=== PATIENT | female | born 1935 | race Caucasian/White ===

== ENCOUNTER 2017-10-11 14:54 | Outpatient (CLI) | payer MEDICARE, OTHER ==
--- NOTE | 2017-10-11 16:11 | ULT ---
DOPPLER VENOUS ULTRASOUND OF THE RIGHT LOWER EXTREMITY: 10/11/17 INDICATION: Right lower extremity edema for 1.5 weeks. TECHNIQUE: [place] scale, color doppler and vascular duplex with spectral analysis was performed of the deep venous structures of the right lower extremity. Common femoral vein, superficial femoral vein, popliteal ve in, posterior tibial vein, proximal greater saphenous and profunda veins were assessed. FINDINGS: There is partial occlusive thrombus seen from the right common femoral vein and right profunda femora l vein through the right superficial femoral vein distally. The right popliteal vein and posterior ti bial appear patent. IMPRESSION: Near complete occlusive thrombus seen within the right common femoral vein through the level of the r ight superficial femoral vein and the proximal right profunda vein. The findings were called to Dr. Guillermo at 3:37 p.m. on 10/11/17. Code CR POS: [id number]
== END 2017-10-11 14:55 | disposition home or self-care (01) ==
LOC: SCSULT 14:54
PROVIDERS: ATTEND Internal Medicine Rheumatology
DX: M79.89 Other specified soft tissue disorders (principal); M79.661 Pain in right lower leg; I82.411 Acute embolism and thrombosis of right femoral vein; I82.811 Embolism and thrombosis of superficial veins of right lower extremity

== ENCOUNTER 2022-09-01 12:05 | Inpatient (IN) | payer MEDICARE, MEDICAID ==
[2022-09-01 12:56] LABS: #Lymphocytes 2.6 thou/uL (1.20-3.40); #Monocytes 1.2 thou/uL (0.11-0.59); #Neutrophils 10.6 thou/uL (1.40-6.50); %Basophils 0.3 % (0.0-1.0); %Eosinophils 0.3 % (0.0-10.0); %Lymphocytes 17.8 % (21.0-51.0); %Monocytes 8.4 % (0.0-10.0); %Neutrophils 73.3 % (42.0-75.0); Hemoglobin 13.8 g/dL (12.0-16.0); Mean Corpuscular HGB CONC 30.2 g/dL (32.0-36.0); Mean Corpuscular Hemoglobin 31.2 pg (27.0-31.0); Mean Platelet Volume 9.1 fL (7.4-10.4); Platelet Count 271 10x3/uL (130-400); RBC Distribution Width 12.7 % (11.5-14.5); Red Blood Cell (RBC) Count 4.42 mill/uL (4.20-5.40); White Blood Cell (WBC) Count 14.5 10x3/uL (4.8-10.8)
[2022-09-01 12:59] LABS: Bacteria/HPF 4+ HPF (None Seen); Bilirubin Negative (Negative); Blood, Urine Trace (Negative); Clarity Extra Turbid (Clear); Glucose, Urine (Dipstick) Normal (Negative); Ketone, Urine Negative (Negative); Leukocyte Negative Leu/uL (Negative); Nitrite Negative (Negative); Protein, Urine (Dipstick) 100 mg/dL (Neg-Trace); RBC/HPF None Seen HPF (0-3); Specific Gravity, Urine 1.033 (1.002-1.036)
[2022-09-01 13:10] LABS: ALT (SGPT) 11 U/L (8-55); AST (SGOT) 18 U/L (5-34); Albumin 3.2 g/dL (3.4-4.8); Alkaline Phosphatase 54 U/L (40-110); Anion Gap 13 mmol/L (10-20); BUN (Urea Nitrogen) 31 mg/dL (9.8-20.1); Bilirubin, Total 0.6 mg/dL (0.2-1.2); Calc. Creatinine Clearance 0 mL/min (70-130); Calcium 8.9 mg/dL (7.8-10.44); Carbon Dioxide 25 mmol/L (23-31); Chloride 113 mmol/L (98-107); Estimated GFR 66; Globulin 3.7 g/dL (2.4-3.5); Glucose 196 mg/dL (83-110); Potassium 3.4 mmol/L (3.5-5.1); Protein, Total 6.9 g/dL (5.8-8.1); Sodium 148 mmol/L (136-145)
[2022-09-01] MEDS ORDERED: cefTRIAXone\\ROCEPHIN 2 GM VIAL ONE (14:38)
[2022-09-01] MEDS ORDERED: HumaLOG 300 UNITS/3 ML VIAL SC PRN ×2 (15:10)
[2022-09-01] MEDS ORDERED: Dextrose 5% in Water 1,000 ML IV PRN (15:10)
[2022-09-01] MEDS ORDERED: Dextrose 50% Abboject 50 ML SYRINGE SLOW IVP PRN (15:10)
[2022-09-01] MEDS ORDERED: Ondansetron PF 4 MG/2 ML Vial IVP PRN (15:14)
[2022-09-01 16:03] LABS: SARS-CoV-2 NAA Rapid Test Not Detected (NotDetected)
[2022-09-01] MEDS ORDERED: Meropenem 1 GM in Sodium Chloride 0.9% 100 ML IVPB SCH (18:15)
[2022-09-01 18:19] VITALS: BMI 24.3
[2022-09-01] MEDS: Dextrose 5 %-0.45 % NaCl 1,000 ML IV SCH (21:25)
[2022-09-01] MEDS: Divalproex Sodium 125 mg Sprinkle Capsule PO SCH (21:34)
[2022-09-01] MEDS: Atorvastatin Calcium 40 MG TAB PO SCH (21:34)
[2022-09-01] MEDS: Pregabalin 75 MG CAP PO SCH (21:35)
[2022-09-01] MEDS: sulfaSALAzine 500 MG TAB PO SCH (21:35)
[2022-09-01] MEDS: guaiFENesin ER 600 MG TAB PO SCH (21:35)
[2022-09-01] MEDS: Mirtazapine 15 MG TAB PO SCH (21:35)
[2022-09-02] MEDS: Dextrose 5 %-0.45 % NaCl 1,000 ML IV SCH ×2 (00:16→12:21)
[2022-09-02] MEDS: Levothyroxine Sodium 25 MCG TAB PO SCH (03:53)
[2022-09-02] MEDS: Meropenem 1 GM in Sodium Chloride 0.9% 100 ML IVPB SCH ×2 (03:58→14:57)
[2022-09-02 07:14] LABS: ALT (SGPT) 9 U/L (8-55); AST (SGOT) 22 U/L (5-34); Albumin 2.9 g/dL (3.4-4.8); Alkaline Phosphatase 52 U/L (40-110); Anion Gap 14 mmol/L (10-20); BUN (Urea Nitrogen) 18 mg/dL (9.8-20.1); Bilirubin, Direct 0.2 mg/dL (0.1-0.3); Bilirubin, Total 0.4 mg/dL (0.2-1.2); Calc. Creatinine Clearance 56 mL/min (70-130); Calcium 8.5 mg/dL (7.8-10.44); Carbon Dioxide 17 mmol/L (23-31); Chloride 116 mmol/L (98-107); Estimated GFR 79; Glucose 238 mg/dL (83-110); Magnesium 1.9 mg/dL (1.6-2.6); Potassium 3.7 mmol/L (3.5-5.1); Protein, Total 6.5 g/dL (5.8-8.1); Sodium 143 mmol/L (136-145)
[2022-09-02 07:57] LABS: #Basophils 0.1 thou/uL (0.0-0.2); #Eosinphils 0.1 thou/uL (0.0-0.7); #Lymphocytes 1.9 thou/uL (1.20-3.40); #Monocytes 0.5 thou/uL (0.11-0.59); #Neutrophils 7.5 thou/uL (1.40-6.50); %Basophils 0.5 % (0.0-1.0); %Eosinophils 1.3 % (0.0-10.0); %Lymphocytes 18.8 % (21.0-51.0); %Monocytes 5.3 % (0.0-10.0); %Neutrophils 74.1 % (42.0-75.0); Hemoglobin 13.7 g/dL (12.0-16.0); Mean Corpuscular HGB CONC 32.1 g/dL (32.0-36.0); Mean Corpuscular Hemoglobin 33.4 pg (27.0-31.0); Platelet Count 244 10x3/uL (130-400); RBC Distribution Width 12.5 % (11.5-14.5); Red Blood Cell (RBC) Count 4.09 mill/uL (4.20-5.40); White Blood Cell (WBC) Count 10.1 10x3/uL (4.8-10.8)
[2022-09-02 08:00] LABS: Hemoglobin A1c 6.8 % (4.0-6.0)
[2022-09-02] MEDS: guaiFENesin ER 600 MG TAB PO SCH ×2 (09:50→21:35)
[2022-09-02] MEDS: DULoxetine 60 MG CAP PO SCH (09:50)
[2022-09-02] MEDS: predniSONE 5 MG TAB PO SCH (09:50)
[2022-09-02] MEDS: Divalproex Sodium 125 mg Sprinkle Capsule PO SCH ×2 (09:50→21:35)
[2022-09-02] MEDS: sulfaSALAzine 500 MG TAB PO SCH ×2 (09:51→21:36)
[2022-09-02] MEDS: Pregabalin 75 MG CAP PO SCH ×2 (09:51→21:36)
[2022-09-02] MEDS: Sodium Chloride 0.45% 1,000 ML IV SCH (14:57)
[2022-09-02] MEDS: Rivaroxaban 10 MG TAB PO SCH (16:06)
[2022-09-02] MEDS: Atorvastatin Calcium 40 MG TAB PO SCH (21:35)
[2022-09-02] MEDS: Mirtazapine 15 MG TAB PO SCH (21:35)
[2022-09-03] MEDS: Sodium Chloride 0.45% 1,000 ML IV SCH ×3 (02:41→16:10)
[2022-09-03] MEDS: Levothyroxine Sodium 25 MCG TAB PO SCH (02:41)
[2022-09-03] MEDS: Meropenem 1 GM in Sodium Chloride 0.9% 100 ML IVPB SCH ×2 (03:56→16:10)
[2022-09-03 08:21] LABS: #Eosinphils 0.2 thou/uL (0.0-0.7); #Lymphocytes 1.8 thou/uL (1.20-3.40); #Monocytes 0.6 thou/uL (0.11-0.59); #Neutrophils 5.9 thou/uL (1.40-6.50); %Basophils 0.4 % (0.0-1.0); %Eosinophils 2.7 % (0.0-10.0); %Lymphocytes 21.3 % (21.0-51.0); %Monocytes 7.2 % (0.0-10.0); %Neutrophils 68.4 % (42.0-75.0); Hemoglobin 13.3 g/dL (12.0-16.0); Mean Corpuscular HGB CONC 32.9 g/dL (32.0-36.0); Mean Corpuscular Hemoglobin 33.5 pg (27.0-31.0); Mean Platelet Volume 8.5 fL (7.4-10.4); Platelet Count 235 10x3/uL (130-400); RBC Distribution Width 12.3 % (11.5-14.5); Red Blood Cell (RBC) Count 3.95 mill/uL (4.20-5.40); White Blood Cell (WBC) Count 8.6 10x3/uL (4.8-10.8)
[2022-09-03 08:45] LABS: Anion Gap 15 mmol/L (10-20); BUN (Urea Nitrogen) 10 mg/dL (9.8-20.1); Calc. Creatinine Clearance 69 mL/min (70-130); Calcium 8.6 mg/dL (7.8-10.44); Carbon Dioxide 22 mmol/L (23-31); Chloride 111 mmol/L (98-107); Estimated GFR 88; Glucose 120 mg/dL (83-110); Magnesium 1.8 mg/dL (1.6-2.6); Potassium 3.1 mmol/L (3.5-5.1); Sodium 145 mmol/L (136-145)
[2022-09-03] MEDS: predniSONE 5 MG TAB PO SCH (09:48)
[2022-09-03] MEDS: sulfaSALAzine 500 MG TAB PO SCH ×3 (09:48→21:27)
[2022-09-03] MEDS: Divalproex Sodium 125 mg Sprinkle Capsule PO SCH ×3 (09:48→21:28)
[2022-09-03] MEDS: Pregabalin 75 MG CAP PO SCH ×3 (09:51→21:26)
[2022-09-03] MEDS: DULoxetine 60 MG CAP PO SCH (09:53)
[2022-09-03] MEDS: guaiFENesin ER 600 MG TAB PO SCH ×3 (09:54→21:28)
[2022-09-03] MEDS: Potassium Chloride 20 MEQ in Premix Bag 1 BAG IVPB SCH ×2 (09:55→12:08)
[2022-09-03] MEDS: Rivaroxaban 10 MG TAB PO SCH (16:10)
[2022-09-03] MEDS: Mirtazapine 15 MG TAB PO SCH ×2 (21:02→21:29)
[2022-09-03] MEDS: Atorvastatin Calcium 40 MG TAB PO SCH ×2 (21:03→21:29)
[2022-09-04] MEDS: Meropenem 1 GM in Sodium Chloride 0.9% 100 ML IVPB SCH ×2 (03:43→15:37)
[2022-09-04] MEDS: Sodium Chloride 0.45% 1,000 ML IV SCH ×2 (03:57→18:21)
[2022-09-04] MEDS: Levothyroxine Sodium 25 MCG TAB PO SCH (05:45)
[2022-09-04 07:30] LABS: Anion Gap 13 mmol/L (10-20); BUN (Urea Nitrogen) 8 mg/dL (9.8-20.1); Calc. Creatinine Clearance 67 mL/min (70-130); Calcium 8.3 mg/dL (7.8-10.44); Carbon Dioxide 21 mmol/L (23-31); Chloride 110 mmol/L (98-107); Estimated GFR 87; Glucose 110 mg/dL (83-110); Magnesium 1.6 mg/dL (1.6-2.6); Potassium 3.2 mmol/L (3.5-5.1); Sodium 141 mmol/L (136-145)
[2022-09-04 07:32] LABS: #Eosinphils 0.2 thou/uL (0.0-0.7); #Lymphocytes 2.1 thou/uL (1.20-3.40); #Monocytes 0.7 thou/uL (0.11-0.59); #Neutrophils 4.4 thou/uL (1.40-6.50); %Basophils 0.3 % (0.0-1.0); %Eosinophils 3.1 % (0.0-10.0); %Lymphocytes 28.3 % (21.0-51.0); %Monocytes 9.2 % (0.0-10.0); %Neutrophils 59.1 % (42.0-75.0); Hemoglobin 12.8 g/dL (12.0-16.0); Mean Corpuscular HGB CONC 31.7 g/dL (32.0-36.0); Mean Corpuscular Hemoglobin 32.9 pg (27.0-31.0); Mean Platelet Volume 8.7 fL (7.4-10.4); Platelet Count 191 10x3/uL (130-400); RBC Distribution Width 12.4 % (11.5-14.5); Red Blood Cell (RBC) Count 3.89 mill/uL (4.20-5.40); White Blood Cell (WBC) Count 7.5 10x3/uL (4.8-10.8)
[2022-09-04] MEDS: sulfaSALAzine 500 MG TAB PO SCH ×2 (09:37→21:57)
[2022-09-04] MEDS: DULoxetine 60 MG CAP PO SCH (09:37)
[2022-09-04] MEDS: guaiFENesin ER 600 MG TAB PO SCH ×2 (09:38→21:56)
[2022-09-04] MEDS: Pregabalin 75 MG CAP PO SCH ×2 (09:38→21:57)
[2022-09-04] MEDS: predniSONE 5 MG TAB PO SCH (09:38)
[2022-09-04] MEDS: Divalproex Sodium 125 mg Sprinkle Capsule PO SCH ×3 (09:38→21:56)
[2022-09-04] MEDS: Potassium Chloride 20 MEQ in Premix Bag 1 BAG IVPB SCH ×2 (11:27→12:42)
[2022-09-04] MEDS: Rivaroxaban 10 MG TAB PO SCH (17:43)
[2022-09-04] MEDS: Atorvastatin Calcium 40 MG TAB PO SCH (21:56)
[2022-09-04] MEDS: Mirtazapine 15 MG TAB PO SCH (21:57)
[2022-09-04] MEDS ORDERED: FLU VACC QS2022-23(65YR UP)/PF 240 MCG/0.7 ML SYRINGE IM ONE (23:00)
[2022-09-05] MEDS: Meropenem 1 GM in Sodium Chloride 0.9% 100 ML IVPB SCH ×2 (03:06→17:09)
[2022-09-05] MEDS: Levothyroxine Sodium 25 MCG TAB PO SCH (05:59)
[2022-09-05 07:32] LABS: #Eosinphils 0.3 thou/uL (0.0-0.7); #Lymphocytes 2.5 thou/uL (1.20-3.40); #Monocytes 0.9 thou/uL (0.11-0.59); #Neutrophils 4.7 thou/uL (1.40-6.50); %Basophils 0.5 % (0.0-1.0); %Lymphocytes 29.7 % (21.0-51.0); %Monocytes 10.6 % (0.0-10.0); %Neutrophils 55.3 % (42.0-75.0); Hemoglobin 13.5 g/dL (12.0-16.0); Mean Corpuscular HGB CONC 32.5 g/dL (32.0-36.0); Mean Corpuscular Hemoglobin 33.2 pg (27.0-31.0); Mean Platelet Volume 8.5 fL (7.4-10.4); Platelet Count 179 10x3/uL (130-400); RBC Distribution Width 12.4 % (11.5-14.5); Red Blood Cell (RBC) Count 4.08 mill/uL (4.20-5.40); White Blood Cell (WBC) Count 8.5 10x3/uL (4.8-10.8)
[2022-09-05 07:33] LABS: Anion Gap 14 mmol/L (10-20); BUN (Urea Nitrogen) 6 mg/dL (9.8-20.1); Calc. Creatinine Clearance 77 mL/min (70-130); Calcium 8.3 mg/dL (7.8-10.44); Carbon Dioxide 20 mmol/L (23-31); Chloride 106 mmol/L (98-107); Estimated GFR 90; Glucose 88 mg/dL (83-110); Magnesium 1.5 mg/dL (1.6-2.6); Potassium 3.6 mmol/L (3.5-5.1); Sodium 136 mmol/L (136-145)
[2022-09-05] MEDS: Divalproex Sodium 125 mg Sprinkle Capsule PO SCH ×2 (09:25→21:04)
[2022-09-05] MEDS: predniSONE 5 MG TAB PO SCH (09:25)
[2022-09-05] MEDS: DULoxetine 60 MG CAP PO SCH (09:26)
[2022-09-05] MEDS: Pregabalin 75 MG CAP PO SCH ×2 (09:26→21:04)
[2022-09-05] MEDS: guaiFENesin ER 600 MG TAB PO SCH ×2 (09:26→21:04)
[2022-09-05] MEDS: sulfaSALAzine 500 MG TAB PO SCH ×2 (09:29→21:05)
[2022-09-05] MEDS: Sodium Chloride 0.45% 1,000 ML IV SCH (10:00)
[2022-09-05] MEDS: Rivaroxaban 10 MG TAB PO SCH (16:54)
[2022-09-05] MEDS: Atorvastatin Calcium 40 MG TAB PO SCH (21:04)
[2022-09-05] MEDS: Mirtazapine 15 MG TAB PO SCH (21:04)
[2022-09-06] MEDS: Sodium Chloride 0.45% 1,000 ML IV SCH (02:42)
[2022-09-06] MEDS: Meropenem 1 GM in Sodium Chloride 0.9% 100 ML IVPB SCH (03:26)
[2022-09-06] MEDS: Levothyroxine Sodium 25 MCG TAB PO SCH (05:14)
[2022-09-06 06:41] LABS: #Eosinphils 0.2 thou/uL (0.0-0.7); #Lymphocytes 2.2 thou/uL (1.20-3.40); #Monocytes 1.5 thou/uL (0.11-0.59); #Neutrophils 6.9 thou/uL (1.40-6.50); %Basophils 0.1 % (0.0-1.0); %Eosinophils 1.7 % (0.0-10.0); %Lymphocytes 20.7 % (21.0-51.0); %Monocytes 13.6 % (0.0-10.0); %Neutrophils 63.9 % (42.0-75.0); Hemoglobin 13.8 g/dL (12.0-16.0); Mean Corpuscular HGB CONC 32.6 g/dL (32.0-36.0); Mean Corpuscular Hemoglobin 32.8 pg (27.0-31.0); Mean Platelet Volume 8.5 fL (7.4-10.4); Platelet Count 176 10x3/uL (130-400); RBC Distribution Width 12.4 % (11.5-14.5); Red Blood Cell (RBC) Count 4.22 mill/uL (4.20-5.40); White Blood Cell (WBC) Count 10.8 10x3/uL (4.8-10.8)
[2022-09-06 07:08] LABS: Anion Gap 14 mmol/L (10-20); BUN (Urea Nitrogen) 4 mg/dL (9.8-20.1); Calc. Creatinine Clearance 76 mL/min (70-130); Calcium 8.3 mg/dL (7.8-10.44); Carbon Dioxide 23 mmol/L (23-31); Chloride 99 mmol/L (98-107); Estimated GFR 90; Glucose 123 mg/dL (83-110); Magnesium 1.5 mg/dL (1.6-2.6); Potassium 3.5 mmol/L (3.5-5.1); Sodium 132 mmol/L (136-145)
[2022-09-06] MEDS: predniSONE 5 MG TAB PO SCH (10:22)
[2022-09-06] MEDS: Divalproex Sodium 125 mg Sprinkle Capsule PO SCH (10:23)
[2022-09-06] MEDS: guaiFENesin ER 600 MG TAB PO SCH (10:24)
[2022-09-06] MEDS: DULoxetine 60 MG CAP PO SCH (10:24)
[2022-09-06] MEDS: Pregabalin 75 MG CAP PO SCH (10:24)
[2022-09-06] MEDS: sulfaSALAzine 500 MG TAB PO SCH (10:27)
[2022-09-06] MEDS ORDERED: Meropenem 1 GM in Sodium Chloride 0.9% 100 ML IVPB SCH (12:00)
[2022-09-06 16:02] VITALS: BP 132/86; TEMP 100
== END 2022-09-06 16:58 | DRG 871 ==
LOC: SUATTDRO 12:05 → ERS 12:05 → T4-A 14:53
PROVIDERS: ADMIT Internal Medicine; ATTEND Internal Medicine
DX: A41.9 Sepsis, unspecified organism (principal); G93.41 Metabolic encephalopathy; N39.0 Urinary tract infection, site not specified; E87.0 Hyperosmolality and hypernatremia; Z66 Do not resuscitate; Z20.822 Contact with and (suspected) exposure to COVID-19; E86.0 Dehydration; E87.6 Hypokalemia; R13.10 Dysphagia, unspecified; F03.90 Unspecified dementia, unspecified severity, without behavioral disturbance, psychotic disturbance, mood disturbance, and anxiety; E03.9 Hypothyroidism, unspecified; E11.9 Type 2 diabetes mellitus without complications; I10 Essential (primary) hypertension; M06.9 Rheumatoid arthritis, unspecified; M81.0 Age-related osteoporosis without current pathological fracture; F32.A Depression, unspecified; Z86.718 Personal history of other venous thrombosis and embolism; Z86.711 Personal history of pulmonary embolism; Z79.899 Other long term (current) drug therapy; Z79.51 Long term (current) use of inhaled steroids; Z90.89 Acquired absence of other organs; Z98.890 Other specified postprocedural states; Z87.891 Personal history of nicotine dependence
CPT/HCPCS: 36415; 36416; 51701; 70450; 71045; 74176; 80048; 80053; 80076; 81003; 81015; 83036; 83605; 83735; 84443; 85025; 87040; 87086; 93005; 93970; 96365; J0696; J1815; J2185; J3480; J3490; J7042; J7512